=== PATIENT | male | born 1985 | race Caucasian/White ===

== ENCOUNTER → 2016-11-06 10:29 | Emergency (ER) | payer SELFPAY ==
[~2016-11-06 10:29] MED LIST: Ketorolac INJ* 60 MG/2 ML VIAL IM ONE; Tetan/Diph/Pertus SYR(Tdap)* 0.5 ML SYR(BOOSTRIX) use SYR IM ONE
--- NOTE | 2016-11-06 11:56 | RAD ---
INDICATION: Traumatic injury distal third digit COMPARISON: None TECHNIQUE: AP, lateral, and oblique views were obtained. FINDINGS: There are fractures of the tuft with extensive soft tissue injury/lacerations about the distal soft tissues. No additional findings. IMPRESSION: SOFT TISSUE INJURY ABOUT THE NAILBED WITH FRACTURES OF THE TUFT.
--- NOTE | 2016-11-06 13:13 | ED ---
Upper Extremity Pain - HPI Summary HPI Summary: 31 male presents with complaints of left middle finger being crushed under a man hold when at work just [employer] (9:45am) 11/06/16. Patient states he was moving it when it fell approximately 18inches landing on the very tip of his left middle finger. States the finger nail was hanging and top piece of his finger was off. Admits to some paresthesias of tip of left finger. Admits to active oozing bleeding. Denies lightheadedness, dizziness, c/p or any other injuries. Denies PMHx. No meds. Pain is an ache about 11/30. - History of Current Complaint Chief Complaint: EDExtremityUpper Stated Complaint: LT HAND/FINGER LAC/SMASHED Time Seen by Provider: 11/06/16 10:47 Hx Obtained From: Patient Mechanism Of Injury: Direct Blow - manhole cover crushing finger Onset/Duration: Started Hours Ago Timing: Constant Severity Initially: Moderate Severity Currently: Mild Pain Location: Finger - left middle Character: Aching, Throbbing Aggravating Factor(s): Movement Alleviating Factor(s): Rest, Compression Associated Signs & Symptoms: Positive: Swelling, Redness, Numbness/Tingling Related History: Occupational Injury, Dominant Hand Right - Allergies/Home Medications Allergies/Adverse Reactions: Allergies Allergy/AdvReac Type Severity Reaction Status Date / Time No Known Allergies Allergy Verified 11/06/16 10:40 PMH/Surg Hx/FS Hx/Imm Hx Endocrine/Hematology History: Denies: Hx Diabetes Cardiovascular History: Denies: Hx Hypertension Respiratory History: Denies: Hx Asthma - Surgical History Surgery Procedure, Year, and Place: umbilical hernia repair 2009. undescended testicle operation as a child. "ear tubes" as a child - Immunization History Date of Tetanus Vaccine: <10 years ago, will up date today 11/06/16 Immunizations Up to Date: Yes Infectious Disease History: No Infectious Disease History: Denies: Traveled Outside the [place] in Last 30 Days - Family History Known Family History: Positive: Cardiac Disease - Social History Alcohol Use: Occasionally Substance Use Type: Reports: None Smoking Status (MU): Never Smoked Tobacco Review of Systems Constitutional: Negative Cardiovascular: Negative Respiratory: Negative Positive: Arthralgia, Myalgia, Edema - left middle finger, tip Positive: Other - laceration/amputation left tip of middle finger Positive: Paresthesia - left middle finger All Other Systems Reviewed And Are Negative: Yes Physical Exam Triage Information Reviewed: Yes Vital Signs On Initial Exam: Initial Vitals Temp Pulse Resp BP Pulse Ox 98.9 F 73 16 147/70 98 11/06/16 10:41 11/06/16 10:41 11/06/16 10:41 11/06/16 10:41 11/06/16 10:41 Vital Signs Reviewed: Yes Appearance: Positive: Well-Appearing, Well-Nourished, Pain Distress - minimal with manipulation of left middle finger Skin: Positive: Warm, Skin Color Reflects Adequate Perfusion, Dry, Other - amputation of left middle finger pad/tip, above DIP, with nail bed interruption , nail hanging off by avulsed skin. Active bleeeding- oozing, non arterial. sensation intact up to injury. ROM intact. no other injuries or laceration noted. rest of skin exam normal Head/Face: Positive: Normal Head/Face Inspection Eyes: Positive: Normal ENT: Positive: Normal ENT inspection, Hearing grossly normal Neck: Positive: Supple, Nontender, No Lymphadenopathy Respiratory/Lung Sounds: Positive: Clear to Auscultation, Breath Sounds Present. Negative: Rales, Rhonchi, Wheezes Cardiovascular: Positive: Normal, RRR, Pulses are Symmetrical in both Upper and Lower Extremities - 2+ radila b/l Musculoskeletal: Positive: Normal, Strength/ROM Intact - ROM in DIP and entire left middle finger, hands/wrists b/l normal, Full ROM. sensation intact., Interruption @ - tip of left middle finger due to amputation, Pain @ - left middle finger, Edema Right - tip of left middle finger, mild Neurological: Positive: Normal, Sensory/Motor Intact, Alert, Oriented to Person Place, Time, CN Intact II-III, Reflexes Intact, NV Bundle Intact Distally, Normal Gait Procedures - Laceration/Wound Repair 1 Location: Other - tip of left middle finger Irrigated w/ Saline (ccs): 150 Sterile Dressing Applied?: Yes - xeroform and telfa Diagnostics - Vital Signs Vital Signs Temp Pulse Resp BP Pulse Ox 11/06/16 10:41 98.9 F 73 16 147/70 98 - Laboratory Lab Statement: Any lab studies that have been ordered have been reviewed, and results considered in the medical decision making process. - Radiology left middle finger Xray Interpretation: Positive (See Comments) - SOFT TISSUE INJURY ABOUT THE NAILBED WITH FRACTURES OF THE TUFT. Radiology Interpretation Completed By: Radiologist Re-Evaluation - Re-Evaluation First Eval Re-Evaluation Time: 12:40 Change: Improved - patient had some relief after toradol and with soaking finger in solution Course/Dx - Course Course Of Treatment: x-ray obtained and showed soft tissue amputation along with fractures about the tuft of left middle finger. spoke with Dr Morejon at 1: 30pm who will see patient in office today. Wound was irrigated, cleansed and dressed with xeroform, telfa and kerlex. toradol given for pain. tetanus updated. antibiotics not given as patient will be seeing Dr Morejon for evaluation and further treatment. Aware of worsening signs and symptoms. - Diagnoses Differential Diagnosis/HQI/PQRI: Positive: Contusion, Fracture (Open), Fracture (Closed), Laceration, Strain, Sprain Provider Diagnoses: Traumatic amputation of tip of finger of left hand, Fracture, finger, distal phalanx - Physician Notifications Discussed Care Of Patient With: Dr Morejon Time Discussed With Above Provider: 01:30 Instructed by Provider To: Send To Office Now Discharge - Discharge Plan Condition: Stable Disposition: HOME Patient Education Materials: Finger Fracture (ED), Finger Amputation (ED) Referrals: Bari Morejon MD [Medical Doctor] - No Primary Care Phys,NOPCP [Primary Care Provider] - Additional Instructions: Please make an appointment to go straight to Dr Morejon office today for further evaluation and treatment. Keep finger elevated and dressed until appointment. You were given toradol and tetanus update while in ED.
[2016-11-06 13:46] VITALS: BP 149/78
--- NOTE | 2016-11-06 14:37 | RAD ---
INDICATION: Left hand injury. TECHNIQUE: 2 views of the left hand were obtained. FINDINGS: There is a large soft tissue defect present along the distal aspect of the third finger at the level of the tuft of the distal phalanx. There is an open fracture of the tuft of the distal phalanx. There is a fracture fragment which is displaced anterior. Joint spaces appear maintained. IMPRESSION: SOFT TISSUE INJURY AND OPEN DISPLACED FRACTURE OF THE TUFT OF THE DISTAL PHALANX OF THE THIRD FINGER.
== END | disposition home or self-care (01) ==
LOC: ED 10:29
DX: S68.123A Partial traumatic metacarpophalangeal amputation of left middle finger, initial encounter (principal); S62.633B Displaced fracture of distal phalanx of left middle finger, initial encounter for open fracture; W23.0XXA Caught, crushed, jammed, or pinched between moving objects, initial encounter; Y93.9 Activity, unspecified; Y92.9 Unspecified place or not applicable; R20.9 Unspecified disturbances of skin sensation
CPT/HCPCS: 73140; 90715; 99282; J1885

== ENCOUNTER 2016-11-11 11:50 | Day surgery (SDC) | payer OTHER ==
[2016-11-11] MEDS ORDERED: Bupivacaine 0.5% SDV PF* 30 ML VIAL ONE (12:22)
[2016-11-11] MEDS ORDERED: Bupivacaine 0.25% SDV* 30 ML ONE (14:24)
[2016-11-11 15:26] VITALS: BP 154/78
--- NOTE | 2016-11-12 11:24 | OP ---
OPERATIVE REPORT: DATE OF OPERATION: 11/11/16 DATE OF : 81 SURGEON: Bari Morejon MD. VENEER MARKER: SIVAN Correa. ANESTHESIOLOGIST: None. ANESTHESIA: Local only with digital block performed with 0.5% Marcaine. PRE-OP DIAGNOSIS: Left middle finger trans-distal phalanx partial amputation. POST-OP DIAGNOSIS: Left middle finger trans-distal phalanx partial amputation. OPERATIVE PROCEDURE: Revision amputation, left middle finger trans-distal phalanx partial amputatio n. INDICATIONS: Trevor had a manhole cover come down and take off the end of the fingertip. We talked about the surgery and the need to cover the distal exposed bone. He knew that he was going to have some shortening of the fingertip. I told him, I will try to preserve as much as possible while stil l getting a nice closure. ESTIMATED BLOOD LOSS: 5 mL. COMPLICATIONS: None. FINDINGS: As expected. DESCRIPTION OF PROCEDURE: Trevor was seen in the preoperative holding area. The correct side and si te and procedure were identified. We had a time-out and then I anesthetized the finger with a digit al block performed with 0.5% Marcaine. We then came back to the operating room where the arm was pr epped and draped with a Betadine scrub and then we had a formal time-out. I began by exsanguinating the finger with the Tourni-Cot and leaving it on proximally. With the fin hetal exsanguinated, I raised full-thickness flaps off of the bone. The Torres Martinez blade was used to kenji l out a couple of bony fragments that had fractured off. These were sent to the lab as part of the specimen. Once I had the bony fragments out and after I had avulsed off the nail plate, I went ahea d and looked at the sterile matrix, this was pretty traumatized distally. So, I took the Torres Martinez libby de and I incised it transversely and excising the distal portion that was traumatized and not health y appearing. When I had a nice fresh edge, I then took the bone cutter and clipped the bone at this level. The volar skin flap was then contoured and the paronychial tissue on both the radial and ul rika sides were left in place. I then brought the flap up and began the closure with 4-0 nylon simpl e interrupted sutures. I tried to get as much of a bumper of soft tissue distally as possible to tr y prevent a hook nail deformity from developing. When I got over towards the ulnar side of the fing er, there was quite a bit of redundant tissue. This was excised to a nice large triangle so that I c ould then close the wound ulnarly in a straight line. This was done preserving the paronychial tiss ue. I was able to then contour and replace the nail plate, tacking it down with just a couple of 4- 0 nylon sutures. The tourniquet was then deflated and the volar soft tissue pinked up immediately. Ultimately we ended up shortening the finger about a third to half the length of the distal phalanx , and I was able to preserve several millimeters of sterile matrix distal to the germinal matrix. With the wound closed up, we went ahead and washed and dried the hand and then the wound was dressed with Xeroform, some 1 inch Clemente and a Coban dressing. He was then taken to recovery room in stabl e condition. [id number]/[facility] #: [id number]
== END 2016-11-11 15:30 | disposition home or self-care (01) ==
LOC: OREAST 11:50
PROVIDERS: ATTEND Orthopaedic Surgery Hand Surgery
PROC: 0X6R0Z3 Detachment at Left Middle Finger, Low, Open Approach (ICD-10-PCS; principal; 2016-11-11 12:30)
DX: S68.623A Partial traumatic transphalangeal amputation of left middle finger, initial encounter (principal); W23.0XXA Caught, crushed, jammed, or pinched between moving objects, initial encounter; Y93.89 Activity, other specified; Y92.410 Unspecified street and highway as the place of occurrence of the external cause; Y99.0 Civilian activity done for income or pay
CPT/HCPCS: 88302

== ENCOUNTER → 2018-09-07 05:49 | Day surgery (SDC) | payer OTHER ==
--- NOTE | 2018-08-21 07:22 | HP ---
ADMITTING HISTORY AND PHYSICAL: DATE OF ADMISSION: 09/07/18 ADMITTING DIAGNOSES: Elective sterilization. PLANNED PROCEDURE: Bilateral vasectomy with intravenous sedation. HISTORY OF PRESENT ILLNESS: Trevor Murphy is a 32-year-old gentleman who is interested in vasectomy for permanent sterilization. He has a past history of scrotal surgery for a right hydrocele, which has resulted in some scar tissue, which makes it fairly uncomfortable for him to have any scrotal procedures under local anesthetic alone and he is now being brought in for a vasectomy with intravenous sedation. PAST MEDICAL HISTORY: Unremarkable. PAST SURGICAL HISTORY: Significant for right hydrocele surgery and left finger injury, requiring surgery. MEDICATIONS ON ADMISSION: None. ALLERGIES: No known drug allergies. REVIEW OF SYSTEMS: He is otherwise in excellent health. There is no history of diabetes mellitus or any other major systemic illness. PHYSICAL EXAMINATION GENERAL: Reveals a pleasant, healthy-appearing young gentleman. VITAL SIGNS: Blood pressure is 160/88, pulse 73 per minute and regular, oxygen saturation 98% on room air. LUNGS: Clear bilaterally. CARDIOVASCULAR: Regular rate and rhythm. S1, S2. ABDOMEN: Soft without masses. Testicles are descended bilaterally. There is a scar on the right side of the scrotum. IMPRESSION: I had a detailed discussion with Trevor regarding the procedure of vasectomy and possible risk of bleeding, infection, testicular pain, and failure of vasectomy. All his questions were answered. PLAN: Bilateral vasectomy with intravenous sedation. [id number]/[facility] #: [id number] MTDD
[~2018-09-07 05:49] MED LIST changes: +Buffered Lidocaine 1% SYRIN* 1 ML/SYRINGE INTRADERM ONE; -Ketorolac INJ* 60 MG/2 ML VIAL IM ONE; +Lactated Ringers 1000 ML Bag* 1,000 ML IV SCH; +Lidocaine 1% INJ* 10 MG/ML 30 ML SDV ONE; +Lidocaine 2% PF * 5 ML VIAL ONE; +Midazolam* 1 MG/ML 2 ML VIAL (2 MG) ONE; +Naloxone* 0.4 MG/ML 1 ML VIAL IV PRN; +Ondansetron INJ* 2 MG/ML VIAL IV PRN; +Propofol* 10 MG/ML 20 ML BTL ONE; -Tetan/Diph/Pertus SYR(Tdap)* 0.5 ML SYR(BOOSTRIX) use SYR IM ONE; +cefTRIAXone(*) 2 GM ADDV.VIAL IVPB ONE; +fentaNYL* 50 MCG/ML 2 ML VIAL (100 MCG VIAL) ONE
[2018-09-07 09:12] VITALS: BP 121/78
--- NOTE | 2018-09-07 09:22 | OP ---
DATE OF OPERATION: 09/07/18 [facility] DATE OF : 81 SURGEON: Ruslan Henderson MD. ANESTHESIOLOGIST: Dr. Espino. ANESTHESIA: Local plus intravenous sedation. PRE-OP DIAGNOSIS: Elective sterilization. POST-OP DIAGNOSIS: Elective sterilization. OPERATIVE PROCEDURE: Bilateral vasectomy (with intravenous sedation). COMPLICATIONS: None. POSTOPERATIVE CONDITION: Stable. BLOOD LOSS: Minimal. SPECIMENS: Right and left vas deferens. INDICATIONS: Trevor Murphy is a 32-year-old gentleman who has had previous scrotal surgery and has scar tissue in the scrotum as a result of the prior surgery. He is now being brought in for bilateral vasectomy using intravenous sedation. DESCRIPTION OF PROCEDURE: After induction of intravenous sedation, external genitalia were prepped and draped in the usual sterile fashion. A small transverse incision was made in the left side of the scrotum. The vas deferens was identified and was delivered through the incision. Small segment of the vas was removed and the divided ends were controlled using hemoclips. Once hemoclips had been applied on both ends, the divided ends were allowed to fall back into their normal anatomic position. The skin and subcutaneous tissue were approximated using interrupted sutures of 4-0 chromic. An identical procedure was performed on the right side. Once again, a small segment of the vas was removed and once again the divided ends were controlled using hemoclips. At the end of the procedure, all sponge and needle counts were correct. Dry sterile dressings were applied. The patient tolerated the procedure satisfactorily. It should also be mentioned that during the procedure on both sides, local anesthesia with 1% lidocaine was used to infiltrate the skin and subcutaneous tissue prior to the procedure on both sides. The patient tolerated the procedure satisfactorily and was transferred back to the recovery area in stable condition. [id number]/[facility] #: [id number] [facility] CENTERNichole
== END | disposition home or self-care (01) ==
LOC: OR 05:49
PROVIDERS: ATTEND Urology
DX: Z30.2 Encounter for sterilization (principal); G47.33 Obstructive sleep apnea (adult) (pediatric); Z68.41 Body mass index [BMI] 40.0-44.9, adult
CPT/HCPCS: 88302; J0696; J2250; J2704; J3010

== ENCOUNTER 2019-01-10 07:47 | Emergency (ER) | payer OTHER ==
[2019-01-10 07:55] VITALS: BP 134/81
--- NOTE | 2019-01-10 08:04 | UC ---
Throat Pain/Nasal Sylvester HPI - HPI Summary HPI Summary: Patient is a 33-year-old male who presents to the urgent care with chief complaint of having sore throat. Patient reports that his be having sore throat for one week. [facility] and today And a Strep Test Was Negative. However Today He Continues to Have Sore Throat Therefore He Decided to Come to the Urgent Care for Further Assessment. He Denies Any Fever or Chills He Has No Other Complaints. - History of Current Complaint Chief Complaint: UCGeneralIllness Stated Complaint: SORE THROAT Time Seen by Provider: 01/10/19 07:53 Hx Obtained From: Patient Severity: Mild Pain Intensity: 7 - Allergies/Home Medications Allergies/Adverse Reactions: Allergies Allergy/AdvReac Type Severity Reaction Status Date / Time Hay Fever Allergy Congestion Uncoded 01/10/19 07:56 PMH/Surg Hx/FS Hx/Imm Hx Previously Healthy: Yes - Surgical History Surgical History: Yes Surgery Procedure, Year, and Place: Umbilical hernia repair 2008. Undescended testicle operation as a child. "Ear tubes" as a child. Finger tip amputation repair 10/2016 - Family History Known Family History: Positive: Cardiac Disease - Social History Alcohol Use: Rare Substance Use Type: None Smoking Status (MU): Never Smoked Tobacco Review of Systems All Other Systems Reviewed And Are Negative: Yes Constitutional: Positive: Negative Skin: Positive: Negative Eyes: Positive: Negative ENT: Positive: Sore Throat Respiratory: Positive: Negative Cardiovascular: Positive: Negative Gastrointestinal: Positive: Negative Genitourinary: Positive: Negative Motor: Positive: Negative Neurovascular: Positive: Negative Musculoskeletal: Positive: Negative Neurological: Positive: Negative Psychological: Positive: Negative Is Patient Immunocompromised?: No Physical Exam - Summary Physical Exam Summary: Vital signs: Reviewed Gen.: Patient is a well developed and nourished male in no acute distress. Patient is sitting comfortably on the stretcher. Head: Normacephalic and atraumatic Eyes: PERRLA, EOMI x2. Ears: Right ear canal and TM WNL Left ear canal and TM WNL Nose Nose with dry mucosa and clear discharge. No sinus tenderness and mouth: Positive pharyngeal erythema with no exudate. Neck: Supple, no bilateral submandibular and anterior cervical lymphadenopathy. No JVD Lungs: CTA B/L CVS: S1 & S2 present. No murmurs appreciated. ABDOMEN: Soft NT w/ positive BS. EXT: FROM x 4 NEURO: A+O X 3. Triage Information Reviewed: Yes Appearance: Well-Appearing Vital Signs: Initial Vital Signs Temp 98 F 01/10/19 07:53 Pulse 94 01/10/19 07:53 Resp 16 01/10/19 07:53 BP 134/81 01/10/19 07:53 Pulse Ox 98 01/10/19 07:53 Vital Signs Reviewed: Yes Throat Pain/Nasal Course/Dx - Course Course Of Treatment: Rapid strep: negative Patient was recommended to take ibuprofen abdominal for the pain. Patient will follow with the primary care physician next couple days. He was recommended to return to the urgent care or go to the emergency room if the symptoms worsen. Patient understands and agrees. - Differential Dx/Diagnosis Provider Diagnosis: Viral pharyngitis Discharge - Sign-Out/Discharge Documenting (check all that apply): Patient Departure All imaging exams completed and their final reports reviewed: No Studies - Discharge Plan Condition: Stable Disposition: HOME Patient Education Materials: Pharyngitis (ED) Referrals: Ayaan Griffiths DO [Primary Care Provider] - Additional Instructions: Take Ibuprofen or Tylenol for the pain Increase your fluid intake F/U with PCP in the next 2-3 days Return to the UC if symptoms worsen - Billing Disposition and Condition Condition: STABLE Disposition: Home
== END 2019-01-10 08:43 | disposition home or self-care (01) ==
LOC: UCEAST 07:47
DX: J02.8 Acute pharyngitis due to other specified organisms (principal)
CPT/HCPCS: 87651; 99211; G0463

== ENCOUNTER 2019-06-12 12:47 | Emergency (ER) | payer OTHER ==
[2019-06-12 12:54] VITALS: BP 161/71
--- NOTE | 2019-06-12 13:55 | UC ---
Hand/Wrist HPI - HPI Summary HPI Summary: patient got R ring finger caught in timothy yesterday afternoon, washed wound and applied dressing. today finger still painful. - History Of Current Complaint Chief Complaint: UCUpperExtremity Stated Complaint: FINGER INJURY Time Seen by Provider: 06/12/19 13:09 Hx Obtained From: Patient Onset/Duration: Sudden Onset Severity Initially: Moderate Severity Currently: Mild Pain Intensity: 1 Character Of Pain: Sharp, Throbbing Aggravating Factor(s): Movement, Lifting, Abduction Alleviating Factor(s): Rest Associated Signs And Symptoms: Positive: Negative. Negative: Swelling, Redness - Allergies/Home Medications Allergies/Adverse Reactions: Allergies Allergy/AdvReac Type Severity Reaction Status Date / Time Hay Fever Allergy Congestion Uncoded 06/12/19 12:54 PMH/Surg Hx/FS Hx/Imm Hx Previously Healthy: Yes - Surgical History Surgical History: Yes Surgery Procedure, Year, and Place: Umbilical hernia repair 2008. Undescended testicle operation as a child. "Ear tubes" as a child. Finger tip amputation repair 10/2016 - Family History Known Family History: Positive: Cardiac Disease - Social History Occupation: Employed Full-time Lives: With Family Alcohol Use: Rare Substance Use Type: None Smoking Status (MU): Never Smoked Tobacco Review of Systems All Other Systems Reviewed And Are Negative: Yes Constitutional: Positive: Negative Skin: Positive: Negative Respiratory: Positive: Negative Cardiovascular: Positive: Negative Musculoskeletal: Positive: Negative, Decreased ROM - d/t pain Neurological: Positive: Negative Psychological: Positive: Negative Is Patient Immunocompromised?: No Physical Exam Triage Information Reviewed: Yes Appearance: Well-Appearing, No Pain Distress, Well-Nourished Vital Signs: Initial Vital Signs Temp 98 F 06/12/19 12:51 Pulse 74 06/12/19 12:51 Resp 16 06/12/19 12:51 BP 161/71 06/12/19 12:51 Pulse Ox 100 06/12/19 12:51 Vital Signs Reviewed: Yes Neck exam: Normal Neck: Positive: Supple, Nontender Respiratory Exam: Normal Respiratory: Positive: Lungs clear Cardiovascular Exam: Normal Cardiovascular: Positive: RRR Musculoskeletal Exam: Normal Musculoskeletal: Positive: Strength Intact - with pain with L shoulder abduction , ROM Intact Neurological Exam: Normal Neurological: Positive: Alert Psychological Exam: Normal Skin Exam: Normal Skin: Negative: Rashes Diagnostics - Radiology No standard instances Radiology Interpretation Completed By: Radiologist - No fracture or foreign body R 4th finger Hand/Wrist Course/Dx - Differential Dx/Diagnosis Differential Diagnosis/HQI/PQRI: Bursitis, Sprain, Strain Provider Diagnosis: Contusion, finger Discharge ED - Sign-Out/Discharge Documenting (check all that apply): Patient Departure All imaging exams completed and their final reports reviewed: Yes - Discharge Plan Condition: Good Disposition: HOME Patient Education Materials: Contusion in Adults (ED) Referrals: Ayaan Griffiths DO [Primary Care Provider] - 1 Week (if no better) Additional Instructions: ice and elevate Right hand for 48h use Tylenol or ibuprofen as directed for pain report redness, swelling or drainage from wound use splint for next 3-5 days - Billing Disposition and Condition Condition: GOOD Disposition: Home
== END 2019-06-12 14:20 | disposition home or self-care (01) ==
LOC: UCEAST 12:47
DX: S60.041A Contusion of right ring finger without damage to nail, initial encounter (principal); Z91.09 Other allergy status, other than to drugs and biological substances; W23.0XXA Caught, crushed, jammed, or pinched between moving objects, initial encounter; Y92.9 Unspecified place or not applicable
CPT/HCPCS: 73140; 99201; G0463